=== PATIENT | female | born 1945 | race Caucasian/White ===

== ENCOUNTER 2020-10-02 18:29 | Emergency (ER) | payer MEDICARE, SELFPAY ==
[2020-10-02 18:42] VITALS: BP 153/92; BP 160/60; PULSE 77; RESP 18; TEMP 37.2; O2SAT 97; O2SAT 98; BMI 20.5
--- NOTE | 2020-10-02 18:43 | ED.LOWEXIN ---
HPI - Extremity Injury (Lower) General Chief Complaint: Extremity Injury, Lower Stated Complaint: fx hip Time Seen by Provider: 10/02/20 18:41 Source: patient Mode of arrival: ambulatory Limitations: no limitations History of Present Illness HPI Narrative: Patient lost balance 2 nights ago while changing her pants, and fell at home landing on her left side complaining of pain especially on ambulation no other injuries patient had x-ray done today which showed left pubic rami fracture patient came here as she has difficulty in walking and plan to go to rehab no other injuries patient not on any blood thinner MD complaint: hip injury Related Data Allergies Allergy/AdvReac Type Severity Reaction Status Date / Time Penicillins [PCN] Allergy Severe ANAPHYLAXIS Unverified 05/21/20 14:34 meperidine [From DEMEROL] Allergy Unknown ELEVATED Unverified 05/21/20 14:34 TEMPERATUR PEPPERS, TUCKER Allergy Severe VIOLENTLY Uncoded 05/21/20 14:34 ILL penicillin Allergy Unknown Uncoded 05/06/20 00:00 peppers Allergy Unknown Uncoded 05/06/20 00:00 Review of Systems Review of Systems: Constitutional : No Weight loss, No Fever, No Chills ENT/Mouth : No sore throat, No Rhinorrhea Eyes: No Eye Pain, No Swelling Cardiovascular : No Chest Pain, no palpitations Respiratory : No Cough, No Sputum, no shortness of breath Gastrointestinal : no Nausea, No Vomiting, No Diarrhea, No abdominal Pain, no black stools Genitourinary : No Dysuria, No Urinary Frequency Musculoskeletal : ++ joint pain, No Myalgias, No Joint Swelling Skin : No Skin Lesions, No rash Neuro : No Weakness, No Numbness, No Dizziness, No Headache Psych : No Anxiety/Panic, No Depression Heme/Lymph: No Bruising, No Lymphadenopathy Endocrine : No Polyuria, No Polydipsia All other systems reviewed and are negative [facility] Past Medical History Medical History Depression Falls GERD (gastroesophageal reflux disease) Hip fracture HLD (hyperlipidemia) HTN (hypertension) Osteoarthritis (arthritis due to wear and tear of joints) Osteoporosis Parkinson disease Surgical History H/O vertebroplasty Social History Social History Alcohol intake: never Smoking Status: Former smoker Use of substances other than those prescribed or required for medical reasons: No Advance Directives: No Advance Directives Information Provided: Yes Physical Exam Vital Signs: Vital Signs: Last Vital Signs Temp 98.7 F 10/02/20 20:06 Pulse 70 10/02/20 20:06 Resp 14 10/02/20 20:06 BP 148/60 H 10/02/20 20:06 Pulse Ox 97 10/02/20 20:06 Body Mass Index 20.5 Const: General: healthy appearing, comfortable and no acute distress Nutritional Appearance: average body habitus Orientation/consciousness: patient oriented x3 Limitations: no limitations HENMT: Head: Yes normocephalic and Yes atraumatic Eyes: General: appearance normal, both eyes and all related structures Neck: Neck: Yes normal visual inspection, Yes full ROM, Yes no lymphadenopathy and Yes no JVD Chest: Chest palpation & inspection: normal inspection of the chest and normal palpation of entire chest wall Resp: Effort & Inspection: normal respiratory effort Auscultation: clear to auscultation bilaterally, no crackles, no rales and no rhonchi Cardio: Jugular venous distension: no JVD Rate: regular rate Rhythm: regular rhythm Heart sounds: S1 normal heart sound present, S2 normal heart sound present and no murmurs GI: Inspection: Yes normal to inspection Palpation (GI): Soft to palpation and nontender Auscultation: normal bowel sounds : General: Yes no CVA tenderness Back/Spine/Pelvis: Back: no CVA tenderness Thoracic/Lumbar Spine: thoracic and lumbar spine normal to inspection Skin: General skin exam: no rashes or lesions noted Neuro: General: patient oriented x3, tone normal, moves all extremities, Normal light touch and pain sensation and no focal motor deficits Extrem: General: Yes normal to inspection and Yes no calf tenderness Upper/lower leg/hip images: 1. Tenderness on deep palpation no deformity good range of movement MDM - Extremity Injury (Lower) MDM Narrative Medical decision making narrative: Patient with left pubic rami fracture not a surgical case need rehab as she has pain in ambulation will place her in rehab. Patient COVID-19 negative Differential Diagnosis Differential diagnosis: Likely fracture of hip Lab Data Attestation: I reviewed the patient's lab results. Result diagrams: 10/02/20 20:12 10/02/20 20:02 Labs: Lab Results 10/02/20 10/02/20 10/02/20 Range/Units 20:02 20:02 20:02 WBC (4.8-10.8) X10*3/uL RBC (4.20-5.50) X10*6/uL Hgb (12.0-16.0) g/dl Hct (37-47) % MCV (80-98) fL MCH (27.0-33.0) pg MCHC (31.0-35.0) g/dl RDW (11.0-16.0) % Plt Count (160-400) X10*3/uL MPV (9.4-12.3) fL Immature Gran % (Auto) (0.0-0.4) % Neut % (Auto) (45-73) % Lymph % (Auto) (20-40) % Runnels % (Auto) (2-11) % Eos % (Auto) (0-4) % Baso % (Auto) (0-2) % Lymph # (Auto) (1.2-4.9) X10*3/uL Runnels # (Auto) (0.1-1.2) X10*3/uL Eos # (Auto) (0.0-0.4) X10*3/uL Baso # (Auto) (0.0-0.2) X10*3/uL Abs Immat Gran (auto) (0.00-0.03) X10*3/uL Absolute Neuts (auto) (2.0-8.3) X10*3/uL Absolute Nucleated RBC (0.0-0.012) X10*3/uL Nucleated RBC % (auto) (0.0-0.2) /100WBC PT 11.2 (10.8-13.0) SEC INR 0.9 (0.9-1.1) Sodium 142 (135-145) mmol/L Potassium 4.8 (3.3-5.1) mmol/L Chloride 108 (96-108) mmol/L Carbon Dioxide 27 (22-29) mmol/L Anion Gap 12 (12-20) BUN 20 H (9-16) mg/dL Creatinine 0.91 (0.5-1.4) mg/dL Estim Creat Clear Calc 44.5 Estimated GFR 60 Random Glucose 104 (60-115) mg/dL Calcium 8.7 (8.4-10.2) mg/dL Total Bilirubin 0.7 (0.0-1.0) mg/dL Direct Bilirubin 0.2 (0.0-0.5) mg/dL AST 12 (5-31) U/L ALT < 6 (0-31) U/L Alkaline Phosphatase 80 (39-117) U/L Total Protein 6.4 L (6.5-8.0) g/dL Albumin 4.1 (3.5-5.0) g/dL COVID-19 ([facility]) Negative (Negative) COVID-19 Clin Com See Note 10/02/20 Range/Units 20:12 WBC 6.7 (4.8-10.8) X10*3/uL RBC 3.65 L (4.20-5.50) X10*6/uL Hgb 11.8 L (12.0-16.0) g/dl Hct 36.7 L (37-47) % MCV 100.5 H (80-98) fL MCH 32.3 (27.0-33.0) pg MCHC 32.2 (31.0-35.0) g/dl RDW 12.9 (11.0-16.0) % Plt Count 167 (160-400) X10*3/uL MPV 11.1 (9.4-12.3) fL Immature Gran % (Auto) 0.3 (0.0-0.4) % Neut % (Auto) 78.7 H (45-73) % Lymph % (Auto) 12.4 L (20-40) % Runnels % (Auto) 6.1 (2-11) % Eos % (Auto) 1.8 (0-4) % Baso % (Auto) 0.7 (0-2) % Lymph # (Auto) 0.8 L (1.2-4.9) X10*3/uL Runnels # (Auto) 0.4 (0.1-1.2) X10*3/uL Eos # (Auto) 0.1 (0.0-0.4) X10*3/uL Baso # (Auto) 0.1 (0.0-0.2) X10*3/uL Abs Immat Gran (auto) 0.02 (0.00-0.03) X10*3/uL Absolute Neuts (auto) 5.2 (2.0-8.3) X10*3/uL Absolute Nucleated RBC 0.000 (0.0-0.012) X10*3/uL Nucleated RBC % (auto) 0.0 (0.0-0.2) /100WBC PT (10.8-13.0) SEC INR (0.9-1.1) Sodium (135-145) mmol/L Potassium (3.3-5.1) mmol/L Chloride (96-108) mmol/L Carbon Dioxide (22-29) mmol/L Anion Gap (12-20) BUN (9-16) mg/dL Creatinine (0.5-1.4) mg/dL Estim Creat Clear Calc Estimated GFR Random Glucose (60-115) mg/dL Calcium (8.4-10.2) mg/dL Total Bilirubin (0.0-1.0) mg/dL Direct Bilirubin (0.0-0.5) mg/dL AST (5-31) U/L ALT (0-31) U/L Alkaline Phosphatase (39-117) U/L Total Protein (6.5-8.0) g/dL Albumin (3.5-5.0) g/dL COVID-19 ([facility]) (Negative) COVID-19 Clin Com Imaging Data pelvis: Radiologist's impression: EXAMINATION: XR HIP, LEFT CLINICAL INFORMATION: Left pubic ramus fracture COMPARISON: 05/06/2020 TECHNIQUE: Single view pelvis with 2 additional views of the left hip. FINDINGS: There are new vertical fractures of the superior and inferior pubic rami present on the left compared with the May 2020 study. Again noted are bilateral intramedullary rods in the femur with screws into the femoral heads. Cement is noted in the sacrum bilaterally and is unchanged. Since the prior study there's been interval healing of the right hip fracture with increased bony formation. XR/XR hip LT w PEL1V IMPRESSION: Fractures involving the inferior and superior pubic rami on the left. No other pelvic fractures are seen. Intramedullary rods and screws both hips. Hardware appears intact.
--- NOTE | 2020-10-02 18:49 | XR_ITS ---
EXAMINATION: XR HIP, LEFT CLINICAL INFORMATION: Left pubic ramus fracture COMPARISON: 05/06/2020 TECHNIQUE: Single view pelvis with 2 additional views of the left hip. FINDINGS: There are new vertical fractures of the superior and inferior pubic rami present on the left compared with the May 2020 study. Again noted are bilateral intramedullary rods in the femur with screws into the femoral heads. Cement is noted in the sacrum bilaterally and is unchanged. Since the prior study there's been interval healing of the right hip fracture with increased bony formation. XR/XR hip LT w PEL1V IMPRESSION: Fractures involving the inferior and superior pubic rami on the left. No other pelvic fractures are seen. Intramedullary rods and screws both hips. Hardware appears intact.
[2020-10-02 20:06] VITALS: BP 148/60; PULSE 70; RESP 14; TEMP 37.1; O2SAT 97
[2020-10-02 20:18] LABS: MANUAL DIFF FLAG NO
[2020-10-02 20:20] LABS: Basophils Absolute Auto 0.1 X10*3/uL (0.0-0.2); Basophils Percent Auto 0.7 % (0-2); Eosinophils Absolute Auto 0.1 X10*3/uL (0.0-0.4); Eosinophils Percent Auto 1.8 % (0-4); Hematocrit 36.7 % (37-47); Hemoglobin 11.8 g/dl (12.0-16.0); Imm Gran Abs Auto 0.02 X10*3/uL (0.00-0.03); Imm Gran Pct Auto 0.3 % (0.0-0.4); Lymphocytes Absolute Auto 0.8 X10*3/uL (1.2-4.9); Lymphocytes Percent Auto 12.4 % (20-40); Mean Corpuscular HGB Conc 32.2 g/dl (31.0-35.0); Mean Corpuscular Hemoglobin 32.3 pg (27.0-33.0); Mean Corpuscular Volume 100.5 fL (80-98); Mean Platelet Volume 11.1 fL (9.4-12.3); Monocytes Absolute Auto 0.4 X10*3/uL (0.1-1.2); Monocytes Percent Auto 6.1 % (2-11); Neutrophils Absolute Auto 5.2 X10*3/uL (2.0-8.3); Neutrophils Percent Auto 78.7 % (45-73); Platelet Count 167 X10*3/uL (160-400); Red Blood Count 3.65 X10*6/uL (4.20-5.50); Red Cell Distribution Width 12.9 % (11.0-16.0); White Blood Count 6.7 X10*3/uL (4.8-10.8)
[2020-10-02 20:21] LABS: INTERNATIONAL NORM RATIO 0.9 (0.9-1.1); Prothrombin Time 11.2 SEC (10.8-13.0)
[2020-10-02 20:30] LABS: COVID-19 Test Negative (Negative); IDNOW Serial# 9DD0AD1C
[2020-10-02 20:45] LABS: Alanine Aminotransferase < 6 U/L (0-31); Albumin Level 4.1 g/dL (3.5-5.0); Alkaline Phosphatase 80 U/L (39-117); Anion Gap 12 (12-20); Aspartate Amino Transferase 12 U/L (5-31); Bilirubin Direct 0.2 mg/dL (0.0-0.5); Bilirubin Total 0.7 mg/dL (0.0-1.0); Blood Urea Nitrogen 20 mg/dL (9-16); Calcium 8.7 mg/dL (8.4-10.2); Carbon Dioxide 27 mmol/L (22-29); Chloride 108 mmol/L (96-108); Creatinine Clr Calc Pharmacy 44.5; Estimated Glomerular Filt Rate 60; Glucose Random 104 mg/dL (60-115); Potassium 4.8 mmol/L (3.3-5.1); Sodium 142 mmol/L (135-145); Total Protein 6.4 g/dL (6.5-8.0)
--- NOTE | 2020-10-02 21:27 | MHC.CM.ED ---
Spoke with daughter and HCP Althea Roberson ([phone]). Daughter is the DON at [facility] on [address] and has a bed for her there for STR. Pt has fx of left pubic rami on xray and cannot bear weight without pain. Dr. Paulino is completing work-up, but is agreeable to discharging pt to [facility] without PT evaluation. Above reviewed with Zaria Partida, Maintenance Service Dispatcher CM and is agreeable to plan to transfer [facility] after work-up. Daughter sent copy of MOLST. Pt is a full code. Althea tells CM that pt will go to room 5. Althea will call her mother and CM to meet with patient. Referral in allscripts made to [facility] along with clinicals. No HCP on file. Will follow for d/c needs.
--- NOTE | 2020-10-02 21:33 | MHC.CM.ED ---
Pt cleared for d/c to [facility]. [facility] booked to transport at 2200. RN and aware. Molst copy, Med lists and meds to travel with patient. RN aware. Met with pt. Very miguel and oriented patient. Aware of transport and need for STR, as daughter, Althea telephoned her. Pt. lives with her daughter and HCP Althea and her family. Pt verifies that Althea is her HCP. Pt. tells me she uses a wheeled walker at home and feels very safe. Is agreeable to transfer and aware that she will go by ambulance. Will follow for d/c needs.
== END 2020-10-02 22:31 | disposition skilled nursing facility (03) ==
PROVIDERS: Emergency Provider Internal Medicine; PCP Internal Medicine
DX: S32.502A Unspecified fracture of left pubis, initial encounter for closed fracture (principal); M25.552 Pain in left hip; W01.0XXA Fall on same level from slipping, tripping and stumbling without subsequent striking against object, initial encounter; Y93.9 Activity, unspecified; Y92.9 Unspecified place or not applicable; Y99.9 Unspecified external cause status; Z79.899 Other long term (current) drug therapy; Z87.891 Personal history of nicotine dependence; Z20.822 Contact with and (suspected) exposure to COVID-19
CPT/HCPCS: 36415; 73502; 80048; 80076; 85025; 85610; 87635; 99283; 99284

== ENCOUNTER 2020-10-29 06:38 | Outpatient (REF) | payer MEDICARE, SELFPAY ==
--- NOTE | ~2020-10-29 | XR_ITS ---
EXAMINATION: XR HIP, LEFT CLINICAL INFORMATION: Left femoral neck fracture. COMPARISON: 10/02/2020 TECHNIQUE: AP pelvis and 2 views of the left hip. FINDINGS: AP film of the pelvis again demonstrates healing fractures of the left superior and inferior pubic rami without change in alignment from previous study of 10/02/2020. There is some periosteal new bone formation but with fracture lines still evident. Cement is noted bilaterally within the sacrum. Right compression screw with long intramedullary toby seen in place transfixing an intracortical anterior/subtrochanteric right proximal femoral fracture. Distal end of the toby is not imaged. Patient is status post placement of compression screw and long intramedullary toby within the right hip for old intratrochanteric fracture. Distal portion of the medullary toby is not included on imaging. No evidence of hardware failure. XR/XR hip LT w PEL1V IMPRESSION: Status post bilateral compression screw and intramedullary toby placement for proximal femoral fractures. No change in alignment of left inferior and superior pubic rami fractures.
== END 2020-10-29 06:39 | disposition home or self-care (01) ==
LOC: HO.HOSX 06:38
PROVIDERS: Visit Provider Physician Assistant
DX: M25.552 Pain in left hip (principal); S72.002A Fracture of unspecified part of neck of left femur, initial encounter for closed fracture; W01.0XXA Fall on same level from slipping, tripping and stumbling without subsequent striking against object, initial encounter; Y93.01 Activity, walking, marching and hiking; Y92.009 Unspecified place in unspecified non-institutional (private) residence as the place of occurrence of the external cause; E78.5 Hyperlipidemia, unspecified; I10 Essential (primary) hypertension; K21.9 Gastro-esophageal reflux disease without esophagitis; Z87.891 Personal history of nicotine dependence; Z88.0 Allergy status to penicillin; Z88.8 Allergy status to other drugs, medicaments and biological substances; Z91.018 Allergy to other foods; Y99.8 Other external cause status
CPT/HCPCS: 73502; 99202

== ENCOUNTER 2020-12-10 08:03 | Outpatient (REF) | payer MEDICARE, SELFPAY | END 2020-12-10 08:04 | disposition home or self-care (01) | LOC: HO.HOSX 08:03 | PROVIDERS: Visit Provider Physician Assistant | DX: Z13.89 Encounter for screening for other disorder (principal) ==

== ENCOUNTER 2023-10-02 11:32 | Outpatient (REF) | payer MEDICARE, SELFPAY ==
[2023-10-02 11:48] VITALS: BP 161/70; PULSE 75; RESP 19; TEMP 36.4; O2SAT 98
[2023-10-02 16:57] VITALS: BMI 24.8
== END 2023-10-02 11:33 | disposition home or self-care (01) ==
LOC: HO.MS 11:32
PROVIDERS: PCP Internal Medicine; Visit Provider Ophthalmology
PROC: (CPT 66821; principal; 2023-10-02 16:10)
DX: H26.491 Other secondary cataract, right eye (principal)
CPT/HCPCS: 66821

== ENCOUNTER 2023-10-16 10:06 | Outpatient (REF) | payer MEDICARE, SELFPAY ==
[2023-10-16 10:44] VITALS: BP 188/77; PULSE 74; RESP 18; TEMP 36.4; O2SAT 97
[2023-10-16 13:28] VITALS: BMI 24.8
== END 2023-10-16 10:07 | disposition home or self-care (01) ==
LOC: HO.MS 10:06
PROVIDERS: PCP Internal Medicine; Visit Provider Ophthalmology
DX: H26.492 Other secondary cataract, left eye (principal); Z53.9 Procedure and treatment not carried out, unspecified reason

== ENCOUNTER 2023-10-30 10:40 | Outpatient (REF) | payer MEDICARE, SELFPAY ==
[2023-10-30 12:07] VITALS: BMI 25.1
[2023-10-30 12:08] VITALS: BP 179/81; PULSE 72; RESP 17; TEMP 36.5; O2SAT 98
== END 2023-10-30 10:41 | disposition home or self-care (01) ==
LOC: HO.MS 10:40
PROVIDERS: PCP Internal Medicine; Visit Provider Ophthalmology
PROC: (CPT 66821; principal; 2023-10-30 12:50)
DX: H26.492 Other secondary cataract, left eye (principal)
CPT/HCPCS: 66821